=== PATIENT | male | born 1945 | race Two or more races ===

== ENCOUNTER 2022-03-19 09:43 | Inpatient (IN) ==
[2022-03-19 10:37] LABS: Basophils % 0.1 % (0.0-0.8); Hematocrit 43.4 VOL% (42.0-52.0); Hemoglobin 14.4 GM/DL (14.0-18.0); Immature Granulocytes % 0.5 %; Immature Granulocytes Absolute 0.08 #; Lymphocytes # 0.9 10*3/uL (1.4-4.0); Lymphocytes % 5.7 % (21.2-54.2); Mean Corpuscular HGB Conc 33.2 GM/DL (32-36); Mean Corpuscular Volume 94.6 FL (87-102); Mean Platelet Volume 10.5 FL (9.6-12.0); Monocytes # 0.7 10*3/uL (0.11-0.8); Monocytes % 4.4 % (1.7-12.7); Neutrophils % 89.3 % (38.7-73.9); Platelet Count 194 T/CUMM (130-400); Red Blood Count 4.59 MC/CUMM (3.8-5.5); Red Cell Distribution Width 12.7 % (9.3-17.3); White Blood Count 14.9 T/CUMM (4-12)
[2022-03-19 10:48] LABS: Albumin 4.1 G/DL (3.4-5.0); Bilirubin,Total 0.5 MG/DL (0.20-1.00); Calcium 9.8 MG/DL (8.5-10.1); Osmolality,Calculated 290.7 MOS/KG (273-304); Potassium 4.4 MMOL/L (3.5-5.1); Total Protein 7.1 G/DL (6.4-8.2)
[2022-03-19] MEDS ORDERED: MORPHINE 2 MG/1 ML SYRINGE ONE (11:20)
[2022-03-19] MEDS ORDERED: NITROGLYCERIN 2% OINT 1 INCH/GM PACK TOP ONE (11:21)
[2022-03-19] MEDS ORDERED: ONDANSETRON 4 MG/2 ML VIAL ONE (11:21)
[2022-03-19] MEDS ORDERED: PROMETHAZINE 25 MG TABLET PO PRN (12:15)
[2022-03-19] MEDS ORDERED: ALUMINUM/MAGNES/SIMETH MAX STR 30 ML UDCUP PO PRN (12:15)
[2022-03-19] MEDS ORDERED: hydrALAZINE 20 MG/1 ML VIAL IV PRN (12:15)
[2022-03-19] MEDS ORDERED: DOCUSATE SODIUM 100 MG CAPSULE PO PRN (12:15)
[2022-03-19] MEDS ORDERED: guaiFENesin/DM ER 600-30 MG TABLET PO PRN (12:15)
[2022-03-19] MEDS ORDERED: diphenhydrAMINE CAP 25 MG CAPSULE PO PRN (12:15)
[2022-03-19] MEDS ORDERED: POTASSIUM CHLORIDE 20 MEQ TABLET PO PRN (12:15)
[2022-03-19] MEDS ORDERED: ONDANSETRON 4 MG/2 ML VIAL IV PRN (12:15)
[2022-03-19] MEDS ORDERED: MAGNESIUM SULF RIDER 4 GM/100 ML PREMIX IV PRN (12:15)
[2022-03-19] MEDS ORDERED: ACETAMINOPHEN 325 MG TABLET PO PRN (12:15)
[2022-03-19] MEDS ORDERED: MAGNESIUM SULF RIDER 2 GM/50 ML PREMIX IV PRN ×2 (12:15→13:10)
[2022-03-19] MEDS ORDERED: ZALEPLON 5 MG CAPSULE PO PRN (12:15)
[2022-03-19] MEDS ORDERED: traZODone 50 MG TABLET PO PRN (12:43)
[2022-03-19] MEDS ORDERED: ASPIRIN CHEW 81 MG TABLET PO STA (12:43)
[2022-03-19] MEDS ORDERED: POTASSIUM CHLORIDE RIDER 10 MEQ/100 ML PREMIX IV PRN (13:10)
[2022-03-19] MEDS ORDERED: ENOXAPARIN 60 MG/0.6 ML SYRINGE ONE (13:10)
[2022-03-19] MEDS ORDERED: DIAZEPAM 5 MG TABLET PO ONE (13:10)
[2022-03-19] MEDS ORDERED: diphenhydrAMINE CAP 50 MG CAPSULE PO ONE (13:10)
[2022-03-19] MEDS: NITROGLYCERIN 2% OINT 1 INCH/GM PACK TOP SCH ×2 (13:30→21:10)
[2022-03-19] MEDS ORDERED: ENOXAPARIN 80 MG/0.8 ML SYRINGE SUBCUT ONE ×2 (13:30→13:32)
[2022-03-19] MEDS ORDERED: ENOXAPARIN 100 MG/ML SYRINGE SUBCUT STA (13:36)
[2022-03-19] MEDS: GABAPENTIN 100 MG CAPSULE PO SCH ×2 (14:56→21:09)
[2022-03-19] MEDS ORDERED: HYDROmorphone 1 MG/1 ML SYRINGE ONE (15:17)
[2022-03-19] MEDS ORDERED: MIDAZOLAM 2 MG/2 ML VIAL ONE (15:18)
[2022-03-19] MEDS ORDERED: NITROGLYCERIN DRIP 50 MG/250 ML BOTTLE IV ONE (15:19)
[2022-03-19] MEDS ORDERED: VERAPAMIL 5 MG/2 ML VIAL ONE (15:19)
[2022-03-19] MEDS ORDERED: TIROFIBAN 5,000 MCG/100 ML PREMIX IV ONE (15:33)
[2022-03-19] MEDS ORDERED: TIROFIBAN 5,000 MCG/100 ML PREMIX IV SCH (15:37)
[2022-03-19] MEDS ORDERED: ENOXAPARIN 30 MG/0.3 ML SYRINGE ONE (15:41)
[2022-03-19] MEDS: INSULIN LISPRO 100 UNIT/ML SUBCUT SCH ×2 (17:23→21:09)
[2022-03-19] MEDS: ATORVASTATIN 80 MG TABLET PO SCH (21:08)
[2022-03-19] MEDS: METOPROLOL TARTRATE 25 MG TABLET PO SCH (21:08)
[2022-03-19] MEDS: TAMSULOSIN 0.4 MG CAPSULE PO SCH (21:08)
[2022-03-20 05:19] LABS: Basophils % 0.1 % (0.0-0.8); Hematocrit 38.3 VOL% (42.0-52.0); Hemoglobin 12.8 GM/DL (14.0-18.0); Immature Granulocytes % 0.7 %; Immature Granulocytes Absolute 0.11 #; Lymphocytes # 1.4 10*3/uL (1.4-4.0); Mean Corpuscular HGB Conc 33.4 GM/DL (32-36); Mean Corpuscular Volume 94.8 FL (87-102); Mean Platelet Volume 10.4 FL (9.6-12.0); Monocytes % 6.6 % (1.7-12.7); Neutrophils % 83.6 % (38.7-73.9); Platelet Count 172 T/CUMM (130-400); Red Blood Count 4.04 MC/CUMM (3.8-5.5); Red Cell Distribution Width 12.9 % (9.3-17.3); White Blood Count 15.5 T/CUMM (4-12)
[2022-03-20 05:48] LABS: Albumin 3.4 G/DL (3.4-5.0); Bilirubin,Total 0.7 MG/DL (0.20-1.00); Calcium 9.1 MG/DL (8.5-10.1); Osmolality,Calculated 281.7 MOS/KG (273-304); Potassium 4.3 MMOL/L (3.5-5.1); Risk Ratio 3.48; Thyroid Stimulating Hormone 2.84 uIU/ml (0.358-3.74); Total Protein 6.1 G/DL (6.4-8.2); VLDL Cholesterol 31.2 MG/DL
[2022-03-20] MEDS: NITROGLYCERIN 2% OINT 1 INCH/GM PACK TOP SCH ×5 (06:53→20:32)
[2022-03-20] MEDS: LEVOTHYROXINE 75 MCG TABLET PO SCH (06:56)
[2022-03-20] MEDS: INSULIN LISPRO 100 UNIT/ML SUBCUT SCH ×4 (08:00→20:33)
[2022-03-20] MEDS ORDERED: MORPHINE 2 MG/1 ML SYRINGE IV PRN ×2 (08:19→09:26)
[2022-03-20] MEDS: METOPROLOL TARTRATE 25 MG TABLET PO SCH ×2 (09:07→20:32)
[2022-03-20] MEDS: ASPIRIN EC 81 MG TABLET PO SCH (09:07)
[2022-03-20] MEDS: FINASTERIDE 5 MG TABLET PO SCH (09:07)
[2022-03-20] MEDS: GABAPENTIN 100 MG CAPSULE PO SCH ×3 (09:07→20:31)
[2022-03-20] MEDS: CYANOCOBALAMIN 500 MCG TABLET PO SCH (09:07)
[2022-03-20] MEDS: TAMSULOSIN 0.4 MG CAPSULE PO SCH ×2 (09:07→20:31)
[2022-03-20] MEDS: PANTOPRAZOLE 40 MG TABLET PO SCH (09:07)
[2022-03-20] MEDS ORDERED: ENOXAPARIN 100 MG/ML SYRINGE SUBCUT ONE (09:33)
[2022-03-20] MEDS ORDERED: TIROFIBAN 0 MCG in PREMIX 1 EACH IV ONE (10:19)
[2022-03-20] MEDS: amLODIPine 5 MG TABLET PO SCH (10:49)
[2022-03-20] MEDS: TIROFIBAN 5,000 MCG/100 ML PREMIX IV SCH ×2 (10:58→19:28)
[2022-03-20] MEDS ORDERED: GLUCAGON 1 MG VIAL IM PRN (11:27)
[2022-03-20] MEDS ORDERED: DEXTROSE 10% 250 ML BAG IV PRN (11:30)
[2022-03-20 11:38] LABS: Glucose,Urine (UA) Negative (Negative); Ketones,Urine Negative (Negative); Nitrite,Urine Negative (Negative); Protein,Urine Negative (Negative); Urine Appearance Clear (Clear); Urine Color Yellow (Yellow); Urine pH 5.5 (4.5-8.0)
[2022-03-20] MEDS ORDERED: TIROFIBAN IV ONE (11:38)
[2022-03-20 11:39] LABS: Bilirubin,Urine Negative (Negative); Blood, Urine Negative (Negative); Urine Urobilinogen 0.2 eU/dL (<2.0)
[2022-03-20 11:41] LABS: Bacteria,Urine Occasional /HPF (Few); Mucus,Urine Occasional /LPF (Occasional); Squamous Epithelial Cell,Urine Occasional /HPF (0-10)
[2022-03-20 12:30] LABS: CKMB % 8.29 %
[2022-03-20 12:39] LABS: High Sensitive Troponin I* 2353.5 ng/L (0-78)
[2022-03-20] MEDS: DULoxetine 30 MG CAPSULE PO SCH (13:10)
[2022-03-20 15:24] LABS: CKMB % 8.52 %
[2022-03-20 15:26] LABS: High Sensitive Troponin I* 3074.5 ng/L (0-78)
[2022-03-20 18:40] LABS: CKMB % 7.78 %
[2022-03-20 18:45] LABS: High Sensitive Troponin I* 4564.1 ng/L (0-78)
[2022-03-20] MEDS: ATORVASTATIN 80 MG TABLET PO SCH (20:31)
[2022-03-20 22:33] LABS: CKMB % 7.23 %
[2022-03-21] MEDS: NITROGLYCERIN 2% OINT 1 INCH/GM PACK TOP SCH ×4 (02:16→20:24)
[2022-03-21] MEDS: TIROFIBAN 5,000 MCG/100 ML PREMIX IV SCH ×4 (02:16→22:20)
[2022-03-21 05:03] LABS: Basophils % 0.2 % (0.0-0.8); Eosinophils % 0.2 % (0.00-10.9); Hematocrit 36.6 VOL% (42.0-52.0); Hemoglobin 12.3 GM/DL (14.0-18.0); Immature Granulocytes % 0.6 %; Immature Granulocytes Absolute 0.08 #; Lymphocytes # 1.6 10*3/uL (1.4-4.0); Lymphocytes % 11.9 % (21.2-54.2); Mean Corpuscular HGB Conc 33.6 GM/DL (32-36); Mean Corpuscular Volume 93.4 FL (87-102); Mean Platelet Volume 10.5 FL (9.6-12.0); Monocytes # 1.2 10*3/uL (0.11-0.8); Neutrophils % 78.1 % (38.7-73.9); Platelet Count 167 T/CUMM (130-400); Red Blood Count 3.92 MC/CUMM (3.8-5.5); Red Cell Distribution Width 12.5 % (9.3-17.3); White Blood Count 13.1 T/CUMM (4-12)
[2022-03-21 05:30] LABS: Albumin 3.4 G/DL (3.4-5.0); Bilirubin,Total 0.7 MG/DL (0.20-1.00); Calcium 9.2 MG/DL (8.5-10.1); Osmolality,Calculated 285.5 MOS/KG (273-304); Potassium 4.4 MMOL/L (3.5-5.1); Total Protein 5.7 G/DL (6.4-8.2)
[2022-03-21 05:32] LABS: CKMB % 6.02 %; High Sensitive Troponin I* 5168.2 ng/L (0-78)
[2022-03-21] MEDS: LEVOTHYROXINE 75 MCG TABLET PO SCH (05:40)
[2022-03-21] MEDS: INSULIN LISPRO 100 UNIT/ML SUBCUT SCH ×4 (08:07→20:24)
[2022-03-21] MEDS: PANTOPRAZOLE 40 MG TABLET PO SCH (08:51)
[2022-03-21] MEDS: FINASTERIDE 5 MG TABLET PO SCH (08:51)
[2022-03-21] MEDS: ASPIRIN EC 81 MG TABLET PO SCH (08:51)
[2022-03-21] MEDS: amLODIPine 5 MG TABLET PO SCH (08:51)
[2022-03-21] MEDS: TAMSULOSIN 0.4 MG CAPSULE PO SCH ×2 (08:51→20:24)
[2022-03-21] MEDS: METOPROLOL TARTRATE 25 MG TABLET PO SCH ×2 (08:52→20:21)
[2022-03-21] MEDS: CYANOCOBALAMIN 500 MCG TABLET PO SCH (08:52)
[2022-03-21] MEDS: GABAPENTIN 100 MG CAPSULE PO SCH ×3 (08:52→20:24)
[2022-03-21] MEDS: DAPAGLIFLOZIN 10 MG TABLET PO SCH (08:52)
[2022-03-21] MEDS ORDERED: NITROGLYCERIN DRIP 50 MG/250 ML BOTTLE IV PRN (09:23)
[2022-03-21] MEDS: RANOLAZINE 500 MG TABLET PO SCH ×2 (12:15→20:23)
[2022-03-21] MEDS: DULoxetine 30 MG CAPSULE PO SCH (12:50)
[2022-03-21] MEDS: ATORVASTATIN 80 MG TABLET PO SCH (20:24)
[2022-03-22] MEDS: TIROFIBAN 5,000 MCG/100 ML PREMIX IV SCH ×2 (00:17→10:42)
[2022-03-22] MEDS: NITROGLYCERIN 2% OINT 1 INCH/GM PACK TOP SCH ×2 (02:08→10:41)
[2022-03-22 04:42] LABS: Basophils % 0.1 % (0.0-0.8); Eosinophils # 0.1 10*3/uL (0.0-0.87); Eosinophils % 0.4 % (0.00-10.9); Hematocrit 38.8 VOL% (42.0-52.0); Hemoglobin 12.7 GM/DL (14.0-18.0); Immature Granulocytes % 0.7 %; Immature Granulocytes Absolute 0.09 #; Lymphocytes # 1.6 10*3/uL (1.4-4.0); Lymphocytes % 11.6 % (21.2-54.2); Mean Corpuscular HGB Conc 32.7 GM/DL (32-36); Mean Corpuscular Volume 93.5 FL (87-102); Mean Platelet Volume 10.3 FL (9.6-12.0); Monocytes # 1.3 10*3/uL (0.11-0.8); Monocytes % 9.3 % (1.7-12.7); Neutrophils % 77.9 % (38.7-73.9); Platelet Count 169 T/CUMM (130-400); Red Blood Count 4.15 MC/CUMM (3.8-5.5); Red Cell Distribution Width 12.3 % (9.3-17.3); White Blood Count 13.6 T/CUMM (4-12)
[2022-03-22 05:06] LABS: Albumin 3.5 G/DL (3.4-5.0); Bilirubin,Total 0.7 MG/DL (0.20-1.00); Calcium 9.3 MG/DL (8.5-10.1); Osmolality,Calculated 284.7 MOS/KG (273-304); Potassium 4.5 MMOL/L (3.5-5.1); Total Protein 6.3 G/DL (6.4-8.2)
[2022-03-22] MEDS: LEVOTHYROXINE 75 MCG TABLET PO SCH (05:30)
[2022-03-22] MEDS: INSULIN LISPRO 100 UNIT/ML SUBCUT SCH (08:20)
[2022-03-22 08:26] VITALS: BP 120/68
[2022-03-22] MEDS: FINASTERIDE 5 MG TABLET PO SCH (09:53)
[2022-03-22] MEDS: RANOLAZINE 500 MG TABLET PO SCH (09:53)
[2022-03-22] MEDS: amLODIPine 5 MG TABLET PO SCH (09:53)
[2022-03-22] MEDS: ASPIRIN EC 81 MG TABLET PO SCH (09:53)
[2022-03-22] MEDS: CYANOCOBALAMIN 500 MCG TABLET PO SCH (09:53)
[2022-03-22] MEDS: PANTOPRAZOLE 40 MG TABLET PO SCH (09:53)
[2022-03-22] MEDS: METOPROLOL TARTRATE 25 MG TABLET PO SCH (09:53)
[2022-03-22] MEDS: TAMSULOSIN 0.4 MG CAPSULE PO SCH (09:53)
[2022-03-22] MEDS: DAPAGLIFLOZIN 10 MG TABLET PO SCH (09:53)
[2022-03-22] MEDS: GABAPENTIN 100 MG CAPSULE PO SCH (09:53)
== END 2022-03-22 10:20 | disposition hospice, home (50) | DRG 251 ==
LOC: N.EDINP 09:43 → N.ED 09:43 → N.TELEN 13:51
PROVIDERS: ADMIT Internal Medicine Cardiovascular Disease; ATTEND Internal Medicine Cardiovascular Disease